=== PATIENT | female | born 1990 | race Two or more races ===

== ENCOUNTER 2024-08-26 10:34 | Emergency (ER) | payer MEDICAID, SELFPAY ==
--- NOTE | 2024-08-26 10:38 | EKG_ITS ---
[facility] Test Date: 2024-08-26 Pat Name: COLTON CUNHA Department: Room: - Gender: Female Medical Front Desk Coordinator: : 1990 Requested By: Edith Dubon Order Number: [id number] Reading MD: Edith Dubon Measurements Intervals [place] Rate: 111 P: 28 IL: 146 QRS: 2 QRSD: 101 T: 10 QT: 317 QTc: 431 Interpretive Statements SINUS TACHYCARDIA LOW QRS VOLTAGE IN PRECORDIAL LEADS [QRS DEFLECTION < 1.0 mV IN CHEST LEADS] INCOMPLETE RIGHT BUNDLE BRANCH BLOCK [90+ ms QRS DURATION, TERMINAL R IN V1/V2, 40+ ms S IN I/aVL/V4/V5/V6] POSSIBLE ANTERIOR MYOCARDIAL INFARCTION , PROBABLY OLD [30 ms Q WAVE IN V3/V4, OR R < 0.2 mV IN V4] ABNORMAL RHYTHM ECG No previous ECG available for comparison /[email or web address]/[id number]
[2024-08-26 10:46] VITALS: BP 136/92; PULSE 104; RESP 18; TEMP 37; O2SAT 95; BMI 46.3
--- NOTE | 2024-08-26 10:55 | EKG_ITS ---
[facility] Test Date: 2024-08-26 Pat Name: COLTON CUNHA Department: Room: - Gender: Female Operator Control Room: : 1990 Requested By: Carroll Dhaliwal Order Number: [id number] Reading MD: Carroll Dhaliwal Measurements Intervals [place] Rate: 115 P: 35 IA: 140 QRS: 6 QRSD: 97 T: 14 QT: 312 QTc: 432 Interpretive Statements SINUS TACHYCARDIA LOW QRS VOLTAGE IN PRECORDIAL LEADS [QRS DEFLECTION < 1.0 mV IN CHEST LEADS] INCOMPLETE RIGHT BUNDLE BRANCH BLOCK [90+ ms QRS DURATION, TERMINAL R IN V1/V2, 40+ ms S IN I/aVL/V4/V5/V6] POSSIBLE ANTERIOR MYOCARDIAL INFARCTION , PROBABLY OLD [30 ms Q WAVE IN V3/V4, OR R < 0.2 mV IN V4] ABNORMAL RHYTHM ECG No previous ECG available for comparison /[email or web address]/[id number]
--- NOTE | 2024-08-26 10:55 | XR_ITS ---
Examination: PA chest single view Technique: Upright PA chest single view Date and time: August 26, 2024, 1204 hrs. Indications: Coughing one week. Findings: Mild enlargement cardiac contour Mild elevation right hemidiaphragm. Impression: No lobar pneumonia or pulmonary edema
--- NOTE | 2024-08-26 10:56 | PD.EDRME ---
Rapid Medical Screening Exam RME Arrival date/time: 08/26/24 10:34 This is a case of 34-year-old female with no medical history came into the emergency room due to chest pain and palpitation with shortness of breath for 2 days worsening of the symptoms this patient decided to start consult here in the emergency room Chief Complaint: Chest Pain Time Seen by Provider: 08/26/24 10:55 Vital signs: Vital Signs Temperature 98.6 F 08/26/24 10:46 Pulse Rate 104 H 08/26/24 10:46 Respiratory Rate 18 08/26/24 10:46 Blood Pressure 136/92 H 08/26/24 10:46 Pulse Oximetry (%) 95 08/26/24 10:46
[2024-08-26 12:04] LABS: Basophils % (Auto) 0 % (0-2.5); Eosinophils # (Auto) 0.1 Thou/mm3 (0.0-0.5); Eosinophils % (Auto) 1 % (0-10); Hematocrit 44.3 % (36.0-46.0); Hemoglobin 15.3 g/dL (12.0-16.0); Immature Granulocytes % (Auto) 0 % (0-0); Immature Granulocytes Auto 0.03 Thou/mm3 (0.00-0.00); Lymphocytes # (Auto) 2.6 Thou/mm3 (1.0-4.8); Lymphocytes % (Auto) 28 % (10-50); Mean Corpuscular HGB Conc 34.5 g/dl (31.0-37.0); Mean Corpuscular Hemoglobin 30.7 pg (25.0-35.0); Mean Corpuscular Volume 89 fL (80-100); Monocytes # (Auto) 0.6 Thou/mm3 (0.0-0.8); Monocytes % (Auto) 7 % (0-12); Neutrophils # (Auto) 5.8 Thou/mm3 (1.8-7.7); Neutrophils % (Auto) 63 % (37-80); Nucleated Red Blood Cell % 0 /100 WBC (0); Platelet Count 270 Thou/mm3 (140-440); RDW Standard Deviation 42.9 fL (36.4-46.3); Red Blood Count 4.98 Miln/mm3 (4.00-5.20); White Blood Count 9.1 Thou/mm3 (3.6-11.0)
[2024-08-26 12:32] LABS: Alanine Aminotransferase 120 U/L (10-49); Albumin, Serum 4.6 gm/dL (3.5-5.0); Albumin/Globulin Ratio 1.4 (1.2-2.2); Alkaline Phosphatase 112 U/L (46-116); Anion Gap 4 (7-16); Aspartate Amino Transferase 74 U/L (0-34); BUN/Creatinine Ratio 9 Ratio (12-20); Bilirubin,Total 0.6 mg/dL (0.3-1.2); Blood Urea Nitrogen 7 mg/dL (9-23); Calcium 9.6 mg/dL (8.3-10.6); Calcium (Corrected) 9.6 mg/dL (8.5-10.1); Carbon Dioxide 30.7 mMol/L (20.0-31.0); Chloride 103 mMol/L (98-107); Creatinine (Component) 0.8 mg/dL (0.6-1.3); Estimated Creatinine Clearance 108.9 mL/min (>60); Globulin 3.2 gm/dL (2.3-3.5); Glucose 127 mg/dL (74-106); Osmolality,Calculated 275 (275-295); Potassium 4.5 mMol/L (3.4-5.1); Sodium 138 mMol/L (136-145); Thyroid Stimulating Hormone 1.43 uIU/mL (0.55-4.78); Total Protein 7.8 gm/dL (5.7-8.2); Troponin I < 0.002 ng/mL (0.0-0.045); eGFR > 60 See Note
[2024-08-26 12:34] LABS: B-Type Natriuretic Peptide < 0 pg/mL (0-100)
[2024-08-26 13:00] LABS: D-Dimer < 250 ng/mL (<600)
--- NOTE | 2024-08-26 13:17 | PD.EDURI ---
Upper Respiratory Inf. RME/HPI General Chief Complaint: Chest Pain Stated Complaint: UPPER MID CHEST PAIN AND SOB,VOMIT X2D Time Seen by Provider: 08/26/24 10:55 Arrival date/time: 08/26/24 10:34 Limitations: no limitations RME / HPI RME / HPI Narrative: 08/26/24 10:34 This is a case of 34-year-old female with no medical history came into the emergency room due to chest pain and palpitation with shortness of breath for 2 days worsening of the symptoms this patient decided to start consult here in the emergency room DR. BAGLEY MAIN ED EVALUATION: 34 year old female with no stated medical history presents to the ED for evaluation of a nonproductive cough beginning 2 weeks ago. Accompanied by feeling fatigued and short of breath. States while walking this morning she was having palpitations, prompting ED visit. Patient additionally reports she had been burping frequently and yesterday had an episode of vomiting. Denies fevers, chills, nasal congestion, chest pain, abdominal pain, diarrhea, or urinary symptoms. Related Data Home Medications ?Medication ?Instructions ?Recorded ?Confirmed ferrous sulfate 324 mg (65 mg 324 mg PO BID 03/07/18 12/18/19 iron) tablet,delayed release vit 122-ferrous fumarate 1 tab PO DAILY 03/07/18 12/18/19 27 mg iron-folic acid 800 mcg tablet ( Multi) Previous Rx's ?Medication ?Instructions ?Recorded docusate sodium 250 mg capsule 250 mg PO QDAY PRN constipation 12/20/19 #30 caps albuterol sulfate 90 mcg/actuation 2 puff inhalation Q6H PRN 08/26/24 aerosol inhaler shortness of breath or wheezing #8.5 grams azithromycin 250 mg tablet See Rx Instructions PO .COMPLEX #6 08/26/24 (Zithromax Z-Mikie) tabs inhalat.spacing dev,large mask #1 ea 08/26/24 (BreatheRite Spacer and Mask, Adult) prednisone 20 mg tablet 20 mg PO BID 3 days #6 tabs 08/26/24 Allergies Allergy/AdvReac Type Severity Reaction Status Date / Time No Known Drug Allergies Allergy Unknown Verified 08/26/24 10:38 Review of Systems Review of Systems Systems Reviewed: All systems reviewed, normal except as documented Past Medical History Past Medical History NEUROLOGIC: Negative Neurological Disorders CARDIAC: Negative Cardiac Disorders GASTROINTESTINAL: Negative Gastrointestinal Disorders GENITOURINARY: Negative Genitourinary Disorders or Renal Disease REPRODUCTIVE: Negative Breast Cancer MUSCULOSKELETAL: Negative Musculoskeletal Disorders ENDOCRINE: Positive Endocrine Disorders OTHER HISTORY: Negative Breast Cancer Family History FAMILY HISTORY: Positive Family Cancer (uncle) Surgical History SURGICAL: Negative Endocrine Surgery, Ear Surgery, Abdominal Surgery or Section Social History SMOKING STATUS: Never smoker SECOND HAND EXPOSURE: No ED Exam General Limitations: Present no limitations General appearance: Present alert and in no apparent distress Head Head exam: Present atraumatic, normocephalic and normal inspection Eye Eye exam: Present normal appearance, PERRL and EOMI ENT ENT exam: Present normal exam, normal oropharynx and mucous membranes moist Neck Neck exam: Present normal inspection, full ROM and trachea midline Chest Chest inspection: Present normal inspection and symmetric chest wall rise Respiratory Respiratory exam: Present normal lung sounds bilaterally Cardiovascular Cardiovascular exam: Present regular rate, normal rhythm and normal heart sounds Abdominal Exam Abdominal exam: Present soft and normal bowel sounds Extremities Exam Extremities exam: Present normal inspection and full ROM Back Exam Back exam: Present normal inspection and full ROM Neurological Exam Neurological exam: Present alert, oriented X3 and CN II-XII intact Psychiatric Psychiatric exam: Present normal affect and normal mood Skin Skin exam: Present warm, dry, intact and normal color Course Quality Measures none Orders Category Date Time Status EKG (ED ONLY) *Do not use* NOW Care 08/26/24 10:39 Completed EKG (ED Only) Stat Exams 08/26/24 10:38 Draft EKG (ED Only) Stat Exams 08/26/24 10:55 Ordered XR chest 1V portable Stat Exams 08/26/24 10:55 Taken BNP [B-Type Natriuretic Peptide] Stat Lab 08/26/24 11:31 Completed CBC Stat Lab 08/26/24 11:31 Completed CMP [Comprehensive Metabolic Panel] Stat Lab 08/26/24 11:31 Completed D-Dimer Stat Lab 08/26/24 11:31 Completed HCG Qualitative,Urine Stat Lab 08/26/24 10:55 Ordered TSH [Thyroid Stimulating Hormone] Stat Lab 08/26/24 11:31 Completed Troponin I Stat Lab 08/26/24 11:31 Completed Vital Signs Vital signs: Vital Signs Temperature 98.6 F 08/26/24 10:46 Pulse Rate 104 H 08/26/24 10:46 Respiratory Rate 18 08/26/24 10:46 Blood Pressure 136/92 H 08/26/24 10:46 Pulse Oximetry (%) 95 08/26/24 10:46 Pulse ox is 95% on room air which is adequate. Upper Respiratory Infection MDM Narrative MDM Narrative:: Regi Greenwood am scribing for and in the presence of Dr. Bagley. Assessment: URI with secondary anxiety symptoms. Very unlikely ACS or PE. Plan: CXR and labs. Antibiotics if indicated. CXR and labs today were unremarkable. Symptoms most suggestive of URI, will discharge home with inhaler, zithromax, prednisone. Patient is amenable to discharge. Strict return precautions were outlined. Patient was discharged in stable condition. Patient data External records reviewed:: [facility] previous records (I reviewed ED visit on 02/2022 ) Clinical information provided by:: patient Social determinants that could affect healthcare access:: none Patient has the following chronic illnesses:: None How is presenting disease/condition affected by chronic disease/condition?: no chronic disease Evaluation data The following diagnostics were reviewed and interpreted by me:: lab results, radiology exam(s) and EKG tracing(s) (08/26/2024 @ 10:45 AM. Sinus tachycardia, rate 111, LAD, no LVH, no ischemia, normal QT ) Lab and/or radiology exams considered but not ordered:: None Interpretation Summary: Chest xray interpreted by me is negative for pneumonia. Medications / Prescriptions Medications or Prescriptions considered but not ordered:: None Medication administrations:: None Consultations Consultation(s) initiated? (list below): No Diagnosis Upper Respiratory Differential Diagnosis: upper respiratory infection, sinusitis, viral infection and bronchitis Most likely diagnosis given after review of the tests above:: Bronchitis Asthma Admission Indicated Admission indicated?: not indicated Admission Request Was there a request for admission?: No Disposition Plan Disposition Plan: Discharge Discharge Attestation Discharge Attestation: The patient and all family members were given an opportunity to ask questions and understood the discharge instructions. Discharge instructions specifically effects, indications for sooner follow up or return to the emergency department, and the expected course of current diagnosis. Patient condition: Stable Discharge Plan Plan Patient Disposition: HOME (Self Care) Prescriptions/Referrals Prescriptions/Med Rec: New azithromycin [Zithromax Z-Mikie] 250 mg tablet See Rx Instructions .ROUTE .COMPLEX Qty: 6 0RF Rx Instructions: For 250 mg dose pack: take 500 mg today (day 1), then 250 mg for 4 days (days 2-5) prednisone 20 mg tablet 20 mg PO BID 3 Days Qty: 6 0RF Taper: Prednisone Taper 20 mg TWICE A DAY for 3 Days and 0 Hour Rx Instructions: 1 tablet twice a day for 3 days albuterol sulfate 90 mcg/actuation HFA aerosol inhaler 2 puff inhalation Q6H PRN (Reason: shortness of breath or wheezing) Qty: 8.5 0RF (DME) BreatheRite Spacer-Mask,Adult Spacer See Rx Instructions .Route Qty: 1 0RF Rx Instructions: As directed No Action ferrous sulfate 324 mg (65 mg iron) Tablet,Delayed Release (Dr/Ec) 324 mg PO BID Multi 27-800 mg-mcg Tablet 1 tab PO DAILY docusate sodium 250 mg capsule 250 mg PO QDAY PRN (Reason: constipation) Qty: 30 1RF Referrals: Analisa Fonseca, MARKET ANALYSIS DIRECTOR [Primary Care Provider] - In 1 week Problem List Clinical Impression: Bronchitis, Asthma Patient/Caregiver Discharge Instructions Education Materials: Controlling Your Asthma, ED Bronchitis with Wheezing (Adult), ED Inhaler Use Print Language: Malay Stand Alone Forms: Shira Award Info., Patient Portal Info Letter
[2024-08-26 13:46] VITALS: BP 128/70; PULSE 78; RESP 12; O2SAT 97
== END 2024-08-26 13:49 | disposition home or self-care (01) ==
PROVIDERS: Nurse Practitioner Family; Emergency Provider Emergency Medicine; PCP Nurse Practitioner Family
DX: J45.909 Unspecified asthma, uncomplicated (principal); I45.10 Unspecified right bundle-branch block; R07.9 Chest pain, unspecified
CPT/HCPCS: 36415; 71045; 80053; 81025; 83880; 84443; 84484; 85025; 85379; 93005; 99283

== ENCOUNTER → 2025-02-18 | Outpatient (CLI) | payer OTHER, SELFPAY ==
--- NOTE | 2025-02-18 07:24 | XR_ITS ---
Examination: Abdomen sonogram, Limited Date and time of exam: 02/18/2025 at 7:30 3:00 a.m. INDICATION: Elevated liver function studies. Technique: Real-time adam scale transabdominal sonographic images of the upper abdomen obtained. Findings: The gallbladder is well seen and appears normal, no stones or polyps are seen within it. The gallbladder wall is normal, and the common bile duct is normal in size and appearance, it measures 0.3 cm. The pancreas is fairly well seen on an abdominal ultrasound exam, and the head and mid body of the pancreas appear essentially normal. There is diffuse significant abnormal increased echogenicity throughout the liver consistent with definite fatty infiltration. No focal lesions are seen in the size of the liver is felt to be reasonably normal. There is normal hepatopetal blood flow seen in the main portal vein and there is normal directional color flow in the inferior vena cava IMPRESSION: 1. The gallbladder appears normal as does the common bile duct. 2 there is diffuse significant fatty infiltration throughout the liver. 3 the right kidney is pretty well seen and no abnormalities are noted
[2025-02-18 09:20] LABS: INR 1.0 (0.9-1.3); Prothrombin Time 10.5 Seconds (9.0-12.2)
[2025-02-18 09:38] LABS: Alanine Aminotransferase 76 U/L (10-49); Albumin, Serum 4.2 gm/dL (3.5-5.0); Alkaline Phosphatase 109 U/L (46-116); Aspartate Amino Transferase 44 U/L (0-34); Bilirubin,Direct 0.1 mg/dL (0.0-0.3); Bilirubin,Total 0.5 mg/dL (0.3-1.2); Total Protein 7.4 gm/dL (5.7-8.2)
[2025-02-18 10:14] LABS: Ferritin 26 ng/mL (7.3-270.7); Iron 83 mcg/dL (50-170); Percent Iron Saturation 24 % (20-55); Total Iron Binding Capacity 341 mcg/dL (250-425); Unsaturated Iron Binding 258 (225-295)
[2025-02-18 10:54] LABS: AFP Non-Pregnant 1.40 ng/mL (<8.10); Hepatitis A Antibody IgM Non Reactive (Non React); Hepatitis B Core Antibody IgM Non Reactive (Non React); Hepatitis B Surface Antigen Non Reactive (Non React); Hepatitis C Antibody Non Reactive (Non React)
== END | disposition home or self-care (01) ==
PROVIDERS: PCP Nurse Practitioner Family; Referring Provider Specialist; Visit Provider Specialist
DX: K76.0 Fatty (change of) liver, not elsewhere classified (principal); R11.0 Nausea; R14.0 Abdominal distension (gaseous); R10.13 Epigastric pain; R10.32 Left lower quadrant pain
CPT/HCPCS: 36415; 76705; 80074; 80076; 82103; 82105; 82390; 82525; 82728; 83540; 83550; 85610; 86015; 86038; 86255